=== PATIENT | male | born 1970 | race Caucasian/White ===

== ENCOUNTER 2018-09-24 14:55 | Emergency (ER) | payer OTHER ==
[2018-09-24] MEDS ORDERED: TDAP ADULT 0.5 ML INJ (BOOSTRIX) IM ONE (16:33)
--- NOTE | 2018-09-24 16:34 | EDPHY ---
H & P Time Seen by Provider: 09/24/18 15:30 HPI/ROS: CHIEF COMPLAINT: Finger laceration HISTORY OF PRESENT ILLNESS: Patient states he cut his left 5th finger on a stainless steel think that he was loading into the back of his truck about 1 hr prior to arrival. He denies numbness, tingling, weakness to the finger. He denies other injuries. Unknown last tetanus. REVIEW OF SYSTEMS: Negative except per HPI. General Appearance: Alert, no distress. Eyes: Pupils equal and round no icterus Respiratory: No respiratory distress Neurological: Awake, alert, no focal deficits. Skin: Warm and dry, no rashes. Musculoskeletal: Neck is supple nontender. Extremities are symmetrical, full range of motion, no edema. Left 5th finger with a 2.5 cm laceration on the ulnar aspect at the base of the digit just distal to the MCP. Normal 2 point discrimination, cap refill, tendon function distal. Psychiatric: Patient is oriented X 3, there is no agitation. Medical/surgical history: Noncontributory Social history: No tobacco, EtOH, drugs. Smoking Status: Never smoked Constitutional: Initial Vital Signs Temperature (C) 36.4 C 09/24/18 14:59 Heart Rate 65 09/24/18 14:59 Respiratory Rate 14 09/24/18 14:59 Blood Pressure 124/91 H 09/24/18 14:59 O2 Sat (%) 95 09/24/18 14:59 O2 Delivery Mode Room Air Allergies/Adverse Reactions: No Known Allergies Allergy (Verified 09/24/18 15:04) Home Medications: Medication Instructions Recorded NO HOME MEDS 08/27/13 Medical Decision Making Procedures: Procedure: Laceration repair. Verbal consent was obtained from the patient. The 2.5 cm laceration on the left 5th, little finger, was anesthetized in the usual fashion with a digital block. Lidocaine 2% without epi for mils used. The wound was irrigated, draped and explored to its base with a gloved finger. There were no deep structures involved. No tendon injury was identified. The wound was repaired with 4 0 Prolene. The wound repair was well-approximated, 6 interrupted sutures placed. The procedure was performed by myself. Differential Diagnosis: Finger laceration as described above verses stainless steel sink 1 hr prior to arrival. Repair as documented. No immunocompromise or other barriers to normal wound healing. Discussed wound care and suture removal in 12-14 days. Tetanus vaccination updated. Understands return precautions. Stable for discharge. Departure - Departure Clinical Impression: Laceration Condition: Good Instructions: Care For Your Stitches (ED), Laceration (ED) Additional Instructions: Suture removal in 12-14 days. Return to the emergency department if you have any concerns of infection. Keep wound clean, apply antibiotic ointment, keep covered with bandage until suture removal. Referrals: NONE *PRIMARY CARE P,. [Primary Care Provider] - As per Instructions
[2018-09-24 17:28] VITALS: BP 120/82
== END 2018-09-24 17:00 | disposition home or self-care (01) ==
LOC: CED 14:55
PROC: 0HQGXZZ Repair Left Hand Skin, External Approach (ICD-10-PCS; principal; 2018-09-24)
DX: S61.217A Laceration without foreign body of left little finger without damage to nail, initial encounter (principal); W26.8XXA Contact with other sharp object(s), not elsewhere classified, initial encounter; Y92.9 Unspecified place or not applicable; Y93.9 Activity, unspecified; Y99.9 Unspecified external cause status; Z23 Encounter for immunization